=== PATIENT | male | born 1965 | race Caucasian/White ===

== ENCOUNTER 2025-02-25 16:09 | Emergency (ER) | payer BC ==
[~2025-02-25] VITALS: Ht 170.2 cm; Wt 82.0 kg
[2025-02-25 16:11] VITALS: BP 153/82; PULSE 66; RESP 16; TEMP 98.1; O2SAT 96
[2025-02-25] MEDS ORDERED: DOXY100T56 PO (16:28)
--- NOTE | 2025-02-25 16:28 | Physician Documentation ---
History of Present Illness ~ Chief Complaint: See Chief Complaint Stated Complaint: "TIC ON MY BACK" Time Seen by MD: 16:26 OK to notify your PCP?: Yes Source: patient Mode of Arrival: POV Exam Limitations: no limitations HPI 59-year-old male presents with tick to right lower back. He states that he noticed it yesterday and is unsure how long it may have been there, likely a couple of days as he has been outside working in [employer]. He is having some pain and tenderness to the site and states he would have removed it himself but he is unable to reach it. Medication Reconciliation Allergies: Coded Allergies: No Known Allergies (Unverified , 02/25/25) Scheduled Doxycycline Monohydrate (Doxycycline Monohydrate), 1 TAB PO Q12H Review of Systems All Other Systems at this time: Reviewed and Negative Physical Exam Vital Signs: RN Vital Signs have been reviewed: Yes, Temperature: 98.1, Source: Temporal, Heart Rate: 66, Respiratory Rate: 16, BP: 153/82, Pulse Oximetry: 96, Weight: 82.000 Oxygen Flow Rate: 0 Pulse Oximetry Reflects: adequate oxygenation Physical Exam General: Alert, no distress. HEENT: No injection, moist mucous membranes. Neck: Full range of motion. Respiratory: No respiratory distress, equal chest rise and fall. Chest: No accessory muscle use. Cardiovascular: Regular rate and rhythm. Gastrointestinal: Nondistended. Extremities: Normal range of motion, no deformity. Neurologic: Oriented x4. Psychiatric: Normal mood and affect. Skin: Normal color, warm and dry. Single tick seen with localized erythema and tenderness surrounding, not bull's-eye kenny, to right lumbar region Procedures Procedures Removed tick to right lower back. Tick head was intact. No remaining parts in the wound. Applied bacitracin and a Band-Aid. Patient tolerated well. Progress Results/Orders Results/Orders Completed Orders - JANNA SANDOVAL DATA WAREHOUSE SPECIALIST Doxycycline 100mg Capsule (Vibramycin 10 (02/25/25 16:26) Medications Received in ER Medications (Trade) Dose Ordered Sig/Ten Route PRN Reason Start Time Stop Time Status Last Admin Dose Admin (VIBRAMYCIN 100mg capsule) 200 mg ONCE STAT PO 02/25/25 16:26 02/25/25 16:27 DC 02/25/25 16:31 200 MG Vital Signs 02/25/25 16:11 Temp 98.1 Pulse 66 Resp 16 B/P (MAP) 153/82 Pulse Ox 96 O2 Flow Rate 0 Medical Decision Making Findings 59-year-old male with a tick on his right lower back. 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 He noticed it yesterday but was unable to reach it to remove it himself. I gave a 1st dose of doxycycline 200 mg while here in the department for Lyme prophylaxis as well as a prescription to the pharmacy for doxycycline 100 mg twice daily as the area where the tick was attached is erythematous and tender. No drainage from site. He was given strict return instructions to come back here for any new or worsening symptoms. He can follow up with his primary care doctor within the next 3-4 days. Differential Dx:Considerations: Include: Abscess, Cellulitis Additional Comment Lyme disease Departure Disposition: HOME / SELF CARE / HOMELESS Impression: Primary Impression: Tick bite of back Condition: Stable Discharge Instructions: Tick Bite Information, Adult, [id number] Additional Instructions: Please take all antibiotics as prescribed. Follow up with her primary care provider in the next 3 days and return back here for any new or worsening symptoms. Referrals: NO PRIMARY CARE PROVIDER (PCP) Prescriptions Doxycycline Monohydrate (Doxycycline Monohydrate) 100 Mg Tablet 1 TAB PO Q12H for 10 Days, #20 TAB Prov: JANNA SANDOVAL 02/25/25 Education Educated: Patient Educated regarding: diagnosis, treatment, prognosis, need for follow up Additional Comment Medical Screen Exam This patient recieved a medical screening examination. After reviewing the individual's medical complaints with presenting symptoms and performing an appropriate physical examination, it was determined that no immediate life- threatening emergency medical condition is present. This individual is also not a women having contractions. Signature Scribe Signature: . Attestation: Scribed for Janna Sandoval by Janna Chery NP . 02/25/25 17:01 JANNA SANDOVAL Feb 25, 2025 16:28
[2025-02-25] MEDS: DOXYCYCLINE 100MG CAPSULE PO STA (16:31)
== END 2025-02-25 16:33 | disposition home or self-care (01) ==
LOC: ER 16:10
DX: S30.860A Insect bite (nonvenomous) of lower back and pelvis, initial encounter (principal); W57.XXXA Bitten or stung by nonvenomous insect and other nonvenomous arthropods, initial encounter; Y93.89 Activity, other specified; Y92.89 Other specified places as the place of occurrence of the external cause; Y99.8 Other external cause status
CPT/HCPCS: 99283

== ENCOUNTER 2025-04-03 09:45 | Emergency (ER) | payer BC, OTHER ==
[~2025-04-03] VITALS: Ht 170.2 cm; Wt 84.8 kg
[2025-04-03 09:55] VITALS: BP 152/92; PULSE 72; RESP 18; O2SAT 99
--- NOTE | 2025-04-03 10:03 | Physician Documentation ---
History of Present Illness ~ Chief Complaint: Laceration Stated Complaint: HAND LAC Time Seen by MD: 09:46 HPI 59-year-old male presents to the ED with a complaint of a laceration on the small left hand on the anterior aspect. He states that he cut himself at work with a piece of wire. He also reports being up-to-date on his tetanus. Bleeding is currently controlled. He denies any numbness or tingling or changes in range of motion Day of Onset: Apr 03, 2025 Medication Reconciliation Allergies: Coded Allergies: No Known Allergies (Unverified , 04/03/25) Scheduled Sulfamethoxazole/Trimethoprim (Septra Ds Tab), 1 TAB PO Q12H Review of Systems All Other Systems at this time: Reviewed and Negative ROS As stated above in the HPI, otherwise all systems are reviewed and negative. Physical Exam Vital Signs: Temperature: 97.5, Source: Temporal, Heart Rate: 72, Respiratory Rate: 18, BP: 152/92, Pulse Oximetry: 99, Weight: 84.840 Physical Exam General: Alert, no apparent distress. Extremities: Normal range of motion, left hand palmar aspect in the aspect and the medial side there is a 3 cm laceration, bleeding controlled Neurologic: Oriented x4. Skin: Normal color, warm and dry. No edema, no ecchymosis. Procedures Laceration/Wound Repair Laceration : Anesthesia: Lidocaine Prep: betadine, irrigated by physician Suture Size/Type: 4-0 Number of Superficial Sutures: 7 Tolerated Procedure Well?: yes, no complications Progress Results/Orders Results/Orders Orders - JAE KIRBY NP Laceration/I&D Tray Set Up (04/03/25 ) Completed Orders - JAE KIRBY PSYCH NURSE Lidocaine 1% W/Epi 1:100,000 (Xylocaine (04/03/25 10:25) Vital Signs 04/03/25 04/03/25 09:55 11:16 Temp 97.5 97.5 Pulse 72 Resp 18 B/P (MAP) 152/92 Pulse Ox 99 Medical Decision Making Findings Laceration was approximated without difficulty, patient tolerated procedure well. 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 Differential Dx:Considerations: Include: Abrasion, Avulsion, Contusion, Laceration, Fracture, Hematoma, Neurovascular injury, Retained foreign body, Other Departure Disposition: HOME / SELF CARE / HOMELESS Impression: Primary Impression: Laceration Discharge Instructions: Laceration Care, Adult, [id number] Referrals: NO PRIMARY CARE PROVIDER (PCP) Prescriptions Sulfamethoxazole/Trimethoprim (Septra Ds Tab) 800 Mg/160 Mg Tablet 1 TAB PO Q12H for 10 Days, #20 TAB Prov: JAE KIRBY PSYCH NURSE 04/03/25 Education Educated: Patient Educated regarding: diagnosis Signature Scribe Signature: y Attestation: Scribed for Jae Kirby Labor Relations Representative by Jae Kirby - RONY . 04/03/25 11:02 JAE KIRBY NP Apr 03, 2025 10:02
[2025-04-03] MEDS ORDERED: SULF1TAB45 PO (11:01)
[2025-04-03] MEDS: LIDOcaine 1% W/epiNEPHrine 1:100,000 20ml vial SQ ONE (11:15)
[2025-04-03 11:16] VITALS: TEMP 97.5
== END 2025-04-03 11:19 | disposition home or self-care (01) ==
LOC: ER 09:45
DX: S61.412A Laceration without foreign body of left hand, initial encounter (principal); Y28.9XXA Contact with unspecified sharp object, undetermined intent, initial encounter; Y93.89 Activity, other specified; Y92.89 Other specified places as the place of occurrence of the external cause; Y99.0 Civilian activity done for income or pay
CPT/HCPCS: 12002; 99283; A6258; A6449